=== PATIENT | male | born 1980 | race Caucasian/White ===

== ENCOUNTER 2017-12-31 20:42 | Emergency (ER) | payer BC, OTHER ==
--- NOTE | 2017-12-31 21:37 | ERNOTE ---
Syncope ER HPI Stated Complaint: LOC, DIZZINESS Time Seen by Provider: 12/31/17 21:26 Source: patient, family Exam Limitations: no limitations Immunizations: IMMUNIZATION HX Immunizations Up to Date Yes History of Influenza Vaccine No Hx Pneumococcal Vaccination No Allergies/Adverse Reactions: Allergies No Known Allergies Allergy (Verified 12/31/17 21:02) Home Medications: HOME MEDICATIONS Atorvastatin Calcium [Lipitor] 10 mg PO DAILY 12/31/17 [Last Taken Unknown] glipiZIDE [Glipizide] 10 mg PO DAILY 12/31/17 [Last Taken Unknown] glipiZIDE [Glucotrol] 10 mg PO DAILY 12/31/17 [Last Taken Unknown] metFORMIN HCL [Metformin HCl] 1,000 mg PO BID 12/31/17 [Last Taken Unknown] Naproxen [Naprosyn] 500 mg PO BID #10 tablet 01/01/18 [Last Taken Unknown] - History of Present Illness Narrative: Pt had episode today of dizziness feeling as if he could pass out. Denies tunnel vision or near syncope. He sat down and the symptoms went away in approx 20 minutes. Prior Episodes: Present: recent history Symptoms prior to episode: Present: light headedness, rapid heart rate, chest pain - pressure 8/10. Absent: vision changes, nausea, headache Activity at time of episode: Present: standing - had just finished vaccuuming Character of event: Present: no loss of consciousness Location of Injury: Present: none Current Symptoms: Present: back to normal Review of Systems - Review of Systems Constitutional: Absent: recent illness, fever, chills EYE: Present: no symptoms reported ENT: Present: no symptoms reported Respiratory: Absent: shortness of breath, cough Cardiology: Present: palpitations - states she found his pulse to be 105- 110, other - chest pressure. Absent: chest pain Gastrointestinal/Abdominal: Absent: nausea, vomiting Genitourinary: Present: no symptoms reported Musculoskeletal: Absent: back pain Skin: Absent: rash Neurological: Present: numbness, tingling Endocrine: Present: excessive sweating Hematologic/Lymphatic: Present: no symptoms reported Psych: Present: no symptoms reported - Patient's Past Medical History Patient History - Medical: Diabetes Type 2 Patient History - Cardiac/Respiratory: No pertinent hx Patient History - Cancer: No Hx of Cancer Patient History - Surgical Procedures: Other Patient History - Other: None - Social History Abuse History: No History of abuse Psych History: No pertinent hx Smoking Status: Current every day smoker Have you smoked in the past 12 months: Yes Do you dip or chew tobacco: Yes Alcohol Use: rarely Drug Use: none - Immunizations Immunizations Up to Date: Yes Hx Pneumococcal Vaccination: No History of Influenza Vaccine: No Physical Exam - Physical Exam General Appearance: Present: wd/wn, alert, no apparent distress Head Exam: Present: normal inspection, no evidence of injury Eye Exam: Normal inspection: bilateral, PERRL: bilateral, EOMI: bilateral Ears, Nose, Throat: Present: normal ENT inspection Neck: Present: normal inspection, nontender Respiratory: Present: no respiratory distress, normal breath sounds, no accessory muscle use, lungs clear Cardiovascular/Chest: Present: regular rate, rhythm, no murmur, normal peripheral pulses Gastrointestinal/Abdominal: Present: normal bowel sounds, nontender, nondistended, soft, no organomegaly Back Exam: Present: normal inspection, normal range of motion Extremity Exam: Present: normal inspection, normal range of motion, no edema Neurological Exam: Present: alert, oriented, normal mood/affect, no motor/ sensory deficits Skin Exam: Present: normal color, warm/dry Lymphatic Exam: Present: no adenopathy ED Progress - Results and Orders Patient's Lab Results:: I have reviewed the patient's lab results. Results and Orders: Laboratory Tests 12/31/17 12/31/17 12/31/17 21:45 21:45 22:32 WBC 8.6 Hgb 15.6 Hct 43.4 Plt Count 276 Sodium 136 Potassium 3.6 Chloride 101 Carbon Dioxide 26.2 BUN 10 Creatinine 0.85 Random Glucose 156 H Calcium 8.8 Total Bilirubin 0.6 AST 19 ALT 67 Alkaline Phosphatase 49 L Troponin I Total Protein 7.2 Albumin 4.0 Urine Color Dark yellow Urine Appearance Clear Urine pH 6.0 Ur Specific Cameron >=1.030 Urine Protein Negative Urine Glucose (UA) 250 H Urine Ketones 5 Urine Blood Negative Urine Nitrate Negative Urine Bilirubin Negative Urine Urobilinogen Normal Ur Leukocyte Esterase Negative Urine RBC 0-5 Urine WBC 0-5 Ur Epithelial Cells 0-5 Urine Bacteria Trace Urine Culture Comments No culture indicated Urine Opiates Screen Barbiturate Screen Ur Phencyclidine Scrn Urine Amphetamine U Benzodiazepines Scrn Urine Cocaine Screen Urine Marijuana (THC) 12/31/17 01/01/18 22:32 00:50 WBC Hgb Hct Plt Count Sodium Potassium Chloride Carbon Dioxide BUN Creatinine Random Glucose Calcium Total Bilirubin AST ALT Alkaline Phosphatase Troponin I Less than 0.017 Total Protein Albumin Urine Color Urine Appearance Urine pH Ur Specific Cameron Urine Protein Urine Glucose (UA) Urine Ketones Urine Blood Urine Nitrate Urine Bilirubin Urine Urobilinogen Ur Leukocyte Esterase Urine RBC Urine WBC Ur Epithelial Cells Urine Bacteria Urine Culture Comments Urine Opiates Screen Negative Barbiturate Screen Negative Ur Phencyclidine Scrn Negative Urine Amphetamine Negative U Benzodiazepines Scrn Negative Urine Cocaine Screen Negative Urine Marijuana (THC) Negative - Vital Signs Patient's Vital Signs:: I have reviewed the patient's vital signs. Vital Signs: Vital Signs 12/31/17 20:56 Temperature 36.3 C L Pulse Rate 87 Respiratory 16 Rate Blood Pressure 118/83 O2 Sat by Pulse 97 Oximetry - EKG EKG: NSR, nonspecific ST T wave changes EKG read: Interp. by me EKG Comments: Repeat EKG: no abnormalities - X-Ray X-Ray #1 X-Ray: chest Interpretation: Interp. by me X-ray Comments: No infiltrate or effusion - Progress/Reassessment Chief Complaint: Syncopal Episode Progress:: Improved Departure Clinical Impression: Chest pain of unknown etiology Type 2 diabetes mellitus Qualifiers: Diabetes mellitus complication status: with hyperglycemia Diabetes mellitus exterminator termite insulin use: without exterminator termite use Qualified Code(s): E11.65 - Type 2 diabetes mellitus with hyperglycemia - Departure Disposition: Home Follow Up Needed Condition: Fair Instructions: Nonspecific Chest Pain, [id number] Additional Instructions: See your primary care provider this week for further work up. Try to keep blood sugar consistent and discuss with your basketball commentator other ways to keep blood sugars level. Referrals: Emily Mendenhall ARNP [Primary Care Provider] - Prescriptions: Naproxen [Naprosyn] 500 mg PO BID #10 tablet
[2017-12-31 21:52] LABS: Hematocrit 43.4 % (42.0-52.0); Hemoglobin 15.6 gm/dL (13.5-18.0); Mean Cell Volume 88.2 fl (78-100); Mean Corpuscular Hemoglobin 31.7 pg (27-31); Mean Corpuscular Hgb Conc 35.9 g/dl (32-36); Mean Platelet Volume 9.5 fl (6.0-9.5); Neutrophil # 4.8 K/mm3 (1.3-6.0); Neutrophil % 56.3 % (42-75.0); Platelet Count 276 K/mm3 (150-450); Red Blood Count 4.92 M/mm3 (4.7-6.0); Red Cell Distribution Width 12.2 % (11.5-14.0); White Blood Count 8.6 K/mm3 (4.0-10.5)
[2017-12-31 22:03] LABS: Anion Gap 12.4 mmol/L (6.8-13.8); BUN/Creatinine Ratio 11.8 (9.0-21.6); Bilirubin, Total 0.6 mg/dL (0.0-1.1); Ca. Corrected For Albumin 8.5 mg/dL (8.4-10.2); Calcium * 8.8 mg/dL (7.9-10.9); Carbon Dioxide 26.2 mmol/L (24-32.6); Potassium 3.6 mmol/L (3.4-4.6); Total Protein 7.2 gm/dL (6.2-8.2)
[2017-12-31 22:40] LABS: Urine Bilirubin Negative (NEGATIVE); Urine Blood Negative /ul (NEGATIVE); Urine Ketone 5 mg/dL (NEGATIVE); Urine Nitrite Negative (NEGATIVE); Urine Protein Negative (NEGATIVE); Urine Specific Gravity >=1.030 SP.GR. (1.005-1.030); Urine Urobilinogen Normal (NORMAL)
[2017-12-31 22:51] LABS: Urine Appearance Clear; Urine Bacteria TRACE; Urine Color Dark Yellow; Urine RBC 0-5 /hpf (0-5); Urine WBC 0-5 /hpf (0-5)
[2017-12-31 22:56] LABS: Cocaine Ur Negative (NEGATIVE); Urine Barbiturate Negative (NEGATIVE); Urine Benzodiazepines Negative (NEGATIVE); Urine Opiates Negative (NEGATIVE); Urine PCP Negative (NEGATIVE); Urine THC Negative (NEGATIVE)
[2018-01-01 02:39] VITALS: BP 127/73
== END 2018-01-01 02:00 | disposition home or self-care (01) ==
LOC: ER 20:42
DX: R07.9 Chest pain, unspecified; E11.65 Type 2 diabetes mellitus with hyperglycemia; F17.200 Nicotine dependence, unspecified, uncomplicated